=== PATIENT | male | born 1965 | race Caucasian/White ===

== ENCOUNTER 2021-06-28 09:44 | Emergency (ER) | payer BC ==
[2021-06-28] MEDS ORDERED: ONDANSETRON 4 MG/2 ML INJ IV ONE (10:55)
[2021-06-28] MEDS ORDERED: SODIUM CHLORIDE 0.9% 1000 ML 1,000 ML IV ONE (10:55)
[2021-06-28] MEDS ORDERED: FAMOTIDINE 20 MG/2 ML INJ IV ONE (11:15)
--- NOTE | 2021-06-28 11:27 | Emergency Department Report ---
- General Chief complaint: Weakness Stated complaint: GENERAL WEAKNESS Time Seen by Provider: 06/28/21 10:41 Source: EMS Mode of arrival: Ambulatory Limitations: Language Barrier - History of Present Illness Initial comments: 55-year-old German speaking male presents to the hospital complaints of worsening weakness for last 5 days with syncopal episode today. Patient has had ongoing stomach issues for several years and was unable to proceed with endoscopy last year secondary to Covid delays. For last 5 days he is only been eating a very small amount due to abdominal discomfort. Intermittent nausea and vomiting reported. Today patient had a syncopal episode and struck his head. Currently has generalized weakness. Headache, abdominal discomfort, frequent belching reported. Pain apparently only has a history elevated cholesterol but does not see a primary care doctor on regular basis. He is recently referred to the outpatient GI doctor with first visit scheduled August 02. No previous abdominal surgeries reported. Patient's can be reached at [phone] Severity scale (0 -10): 0 - Related Data Previous Rx's Medication Instructions Recorded Last Taken Type Ibuprofen [Motrin] 800 mg PO Q8HR PRN #30 tablet 12/13/19 Unknown Rx Allergies Allergy/AdvReac Type Severity Reaction Status Date / Time No Known Allergies Allergy Unverified 06/28/21 09:45 ED Review of Systems ROS: Stated complaint: GENERAL WEAKNESS Other details as noted in HPI Comment: All other systems reviewed and negative ED Past Medical Hx - Past Medical History Hx Headaches / Migraines: Yes - Social History Smoking Status: Never Smoker Substance Use Type: None - Medications Home Medications: Home Medications Medication Instructions Recorded Confirmed Last Taken Type Ibuprofen [Motrin] 800 mg PO Q8HR PRN #30 tablet 12/13/19 Unknown Rx ED Physical Exam - General Limitations: Language Barrier - Other Other exam information: General: No acute distress Head: Atraumatic, no Eyes: normal appearance ENT: Moist mucous membranes Neck: Normal appearance, no midline tenderness Chest: Clear to auscultation bilaterally CV: Regular rate and rhythm Abdomen: Soft, normal bowel sounds, nontender, nondistended, no rebound or guarding, frequent belching Back: Normal inspection.. Extremity: Normal inspection, full range of motion Neuro: Alert but with generalized weakness and requiring support for sitting up in bed. Equal handgrip. 5/5 lower extremity strength Psych: Appropriate behavior Skin: No rash ED Course Vital Signs 06/28/21 06/28/21 06/28/21 09:45 10:25 10:26 Temperature 98.4 F 98.2 F Pulse Rate 60 122 H Respiratory 20 16 Rate Blood Pressure 152/74 154/98 [Right] O2 Sat by Pulse 97 99 99 Oximetry 06/28/21 13:50 Temperature Pulse Rate 127 H Respiratory 16 Rate Blood Pressure 177/91 [Right] O2 Sat by Pulse 100 Oximetry - Reevaluation(s) Reevaluation #1: 06/28/21 12:55 Nurse informs me that patient had received IV Zofran and Pepcid. He is now more agitated and pulling out his IVs and trying to pull up the monitor leads. at the bedside also states that patient is now not making sense when he talks. Patient is currently on his way to CAT scan 06/28/21 13:[address] head noncontrast obvious subdural with significant amount of shift. I informed nursing care of the patient and asked charge nurse to move patient to a resuscitation room. Awaiting official report. I Also requested for CT techs to have radiologist read imaging stat 06/28/21 13:27 I updated about patient's condition and was placed on speaker phone with her Romanian-speaking sports development officer [id number] and explained patient's diagnosis, need for intubation and transfer 06/28/21 13:30 Patient also reexamined and right pupil larger than left and minimally reactive. gcs 13 06/28/21 14:23 BP 231/140 after intubation. Cardene drip ordered after consultation with Trauma attending. Given delay and ground transport (midnight ETA provided) air flight transport requested. Physician family member/[id number] also updated about patient's results and plan for transfer via helicopter Reevaluation #2: 06/28/21 15:03 Flight crew presented prior to collection of type and screen and coags by phlebotomy - Consultations Consultation #1: 06/28/21 13:[address] Aneesh Rivera neurosurgeon who does advise transfer 100 g of mannitol IV 06/28/21 13:39 [facility] accepted patient for transfer to [facility]. 06/28/21 14:22 Case we discussed with Dr. Cavaozs trauma attending regarding elevated blood pressure (231/140) after intubation. Recommend systolic BP of 150. Cardene ordered. RN informed - Intubation Time Out Performed: Yes Sedative: Etomidate Mg Given: 20 Paralytic: Rocuronium Mg Given: 100 Laryngoscope: fiberoptic video scope Size: 3 ET Tube Size: 7.5 Tube Secured Depth (cm): 22 Tube Secured Location: lips Tube Placement Confirmation: visualized tube passing t, equal breath sounds bilat, no breath sounds over epi, confirmation by capnometr Patient Tolerated Procedure: well Intubation Complications: none ED Medical Decision Making - Lab Data Result diagrams: 06/28/21 11:21 06/28/21 11:21 Lab Results 06/28/21 06/28/21 06/28/21 Range/Units 11:21 11: 11:21 WBC 10.5 (4.5-11.0) K/mm3 RBC 4.66 (3.65-5.03) M/mm3 Hgb 14.5 (11.8-15.2) gm/dl Hct 42.4 (35.5-45.6) % MCV 91 (84-94) fl MCH 31 (28-32) pg MCHC 34 (32-34) % RDW 12.5 L (13.2-15.2) % Plt Count 272 (140-440) K/mm3 Lymph % (Auto) 12.7 L (13.4-35.0) % [place] % (Auto) 7.6 H (0.0-7.3) % Eos % (Auto) 0.0 (0.0-4.3) % Baso % (Auto) 0.1 (0.0-1.8) % Lymph # (Auto) 1.3 (1.2-5.4) K/mm3 [place] # (Auto) 0.8 (0.0-0.8) K/mm3 Eos # (Auto) 0.0 (0.0-0.4) K/mm3 Baso # (Auto) 0.0 (0.0-0.1) K/mm3 Seg Neutrophils % 79.6 H (40.0-70.0) % Seg Neutrophils # 8.4 H (1.8-7.7) K/mm3 Sodium 131 L (137-145) mmol/L Potassium 3.6 (3.6-5.0) mmol/L Chloride 98.3 (98-107) mmol/L Carbon Dioxide 21 L (22-30) mmol/L Anion Gap 15 mmol/L BUN 20 (9-20) mg/dL Creatinine 0.5 L (0.8-1.3) mg/dL Estimated GFR > 60 ml/min BUN/Creatinine Ratio 40 % Glucose 139 H (75-100) mg/dL Calcium 8.6 (8.4-10.2) mg/dL Magnesium 2.40 H (1.7-2.3) mg/dL Total Bilirubin 0.90 (0.1-1.2) mg/dL AST 16 (5-40) units/L ALT 19 (7-56) units/L Alkaline Phosphatase 47 (35-129) units/L Troponin T < 0.010 (0.00-0.029) ng/mL Total Protein 7.8 (6.3-8.2) g/dL Albumin 4.3 (3.9-5) g/dL Albumin/Globulin Ratio 1.2 % Lipase 24 (13-60) units/L TSH 0.355 (0.270-4.200) mlU/mL Free T4 1.22 (0.76-1.46) ng/dL - EKG Data -: EKG Interpreted by Mn EKG shows normal: sinus rhythm, ST-T waves (No STEMI) Rate: bradycardia (53) - Radiology Data Radiology results: report reviewed CT HEAD WITHOUT CONTRAST INDICATION : syncope, head injury. TECHNIQUE: Axial imaging performed from the skull apex through the skull base without the use of contrast. Sagittal and coronal reformatted images. All CT scans at this location are performed using CT dose reduction for ALARA by means of automated exposure control. COMPARISON: None FINDINGS: Parenchyma: There is a moderate to large mixed density right subdural hemorrhage measuring up to 1.2 cm in thickness. There is also subdural blood along the left side of the falx measuring up to 5 mm in thickness. There is moderate to severe mass effect on the right cerebral hemisphere with diffuse sulcal effacement and right to left midline shift measuring 1.3 cm at the level of the frontal horns. Basilar cisterns are nearly obliterated particularly the suprasellar cistern. Impending herniation should be considered. There appear to be a few tiny cortical hemorrhages in the left anterior frontal lobe which is best demonstrated on images 7-9. No other areas of intraparenchymal hemorrhage. Ventricles: The right ventricle is compressed. Ventricular size appears within normal limits. There is mild dilatation of the left temporal horn of the ventricular system. Bones: No acute osseous abnormality. Sinuses: Sinuses and mastoid air cells are clear. Soft tissues: Soft tissues including the orbits appear normal. IMPRESSION: Moderate to large mixed density right subdural hemorrhage with significant mass effect as outlined above. This may represent an acute on subacute hemorrhage. Please correlate with the patient's clinical history. Small amount of acute subdural blood along the left side of the falx. Tiny cortical hemorrhages in the left anterior frontal lobe as described. CT cervical spine wo con INDICATION: head injury/syncope. TECHNIQUE: Axial CT images of the cervical spine were obtained. Sagittal and coronal reformatted images were produced. All CT scans at this location are performed using CT dose reduction for ALARA by means of automated exposure control. COMPARISON: None available. FINDINGS: ALIGNMENT: Normal alignment. VERTEBRAE: No fracture. Vertebral body heights are preserved. C1 and C2 are congruent. SPONDYLOSIS: No significant spondylosis. SOFT TISSUES: No significant soft tissue abnormality. ADDITIONAL FINDINGS: No significant additional findings. IMPRESSION: 1. No fracture of the cervical spine. CT ABDOMEN AND PELVIS WITH CONTRAST INDICATION / CLINICAL INFORMATION: abdominal pain, poor po intake OMNI 300 100 ML. TECHNIQUE: Axial CT images were obtained through the abdomen and pelvis after 100 cc of Omnipaque [address] scans at this location are performed using CT dose reduction for ALARA by means of automated exposure control. COMPARISON: None available. FINDINGS: LOWER CHEST: No significant abnormality. AORTA / ARTERIES: Mild atherosclerotic calcification without acute abnormality. IVC / VEINS: No significant abnormality. LYMPH NODES: No significant adenopathy. COLON: No significant abnormality. APPENDIX: No significant abnormality. STOMACH / SMALL BOWEL: No significant abnormality. PERITONEUM: No free fluid. No free air. No fluid collection. LIVER: No significant abnormality. GALLBLADDER: No significant abnormality. BILE DUCTS: No significant abnormality. PANCREAS: No significant abnormality. SPLEEN: No significant abnormality. ADRENALS: No significant abnormality. RIGHT KIDNEY / URETER: No significant abnormality. LEFT KIDNEY / URETER: No significant abnormality. URINARY BLADDER: No significant abnormality. REPRODUCTIVE ORGANS: No significant abnormality. SKELETAL SYSTEM: Scattered degeneration. Incidentally noted grade 1 anterolisthesis of L5 on S1 secondary to bilateral pars interarticularis defects. ADDITIONAL FINDINGS: None. IMPRESSION: 1. No CT findings to explain symptomatology. CHEST 1 VIEW 06/28/2021 11:38 AM INDICATION / CLINICAL INFORMATION: syncope, weakness. COMPARISON: 12/13/2019 FINDINGS: SUPPORT DEVICES: None. HEART / MEDIASTINUM: No significant abnormality. LUNGS / PLEURA: No significant pulmonary or pleural abnormality. No pneumothorax. ADDITIONAL FINDINGS: No significant additional findings. IMPRESSION: 1. No acute findings. Critical Care Time: Yes Critical care time in (mins) excluding proc time.: 76 Critical care attestation.: If time is entered above; I have spent that time in minutes in the direct care of this critically ill patient, excluding procedure time. Critical Care Time: 75 Minutes of critical care time excluding procedures were used in the care of the patient. I discussed treatment plan with the nursing team members. I reviewed electronic record. I spoke with family to obtain medical history. Patient required multiple interventions and reassessments. Spoke to trauma attending at [facility] who excepted patient. Airlift transport coordinated ED Disposition Clinical Impression: Subdural hematoma, Altered mental status, Midline shift of brain, Chronic abdominal pain Disposition: 02 SHORT TERM HOSPITAL Is pt being admited?: No Condition: Stable Referrals: CHETAN BATES MD [Primary Care Provider] - 3-5 Days Time of Disposition: 14:35
[2021-06-28 11:55] LABS: Basophils % (Auto) 0.1 % (0.0-1.8); Hematocrit 42.4 % (35.5-45.6); Hemoglobin 14.5 gm/dl (11.8-15.2); Lymphocytes # (Auto) 1.3 K/mm3 (1.2-5.4); Lymphocytes % (Auto) 12.7 % (13.4-35.0); Mean Corpuscular HGB Conc 34 % (32-34); Mean Corpuscular Volume 91 fl (84-94); Monocytes # (Auto) 0.8 K/mm3 (0.0-0.8); Monocytes % (Auto) 7.6 % (0.0-7.3); Platelet Count 272 K/mm3 (140-440); Red Blood Count 4.66 M/mm3 (3.65-5.03); Red Cell Distribution Width 12.5 % (13.2-15.2)
--- NOTE | 2021-06-28 12:23 | XRay Report ---
CHEST 1 VIEW 06/28/2021 11:38 AM INDICATION / CLINICAL INFORMATION: syncope, weakness. COMPARISON: 12/13/2019 FINDINGS: SUPPORT DEVICES: None. HEART / MEDIASTINUM: No significant abnormality. LUNGS / PLEURA: No significant pulmonary or pleural abnormality. No pneumothorax. ADDITIONAL FINDINGS: No significant additional findings. IMPRESSION: 1. No acute findings. Signer Name: Bentley Tao MD Signed: 06/28/2021 12:18 PM Workstation Name: [id number]
[2021-06-28 12:32] LABS: Alanine Aminotransferase 19 units/L (7-56); Albumin 4.3 g/dL (3.9-5); Blood Urea Nitrogen 20 mg/dL (9-20); Calcium 8.6 mg/dL (8.4-10.2); Hemolysis Index 14
[2021-06-28 12:35] LABS: BUN/Creatinine Ratio 40
[2021-06-28 12:49] LABS: Free T4 (Free Thyroxine) 1.22 ng/dL (0.76-1.46)
--- NOTE | 2021-06-28 13:27 | Cat Scan Report ---
CT cervical spine wo con INDICATION: head injury/syncope. TECHNIQUE: Axial CT images of the cervical spine were obtained. Sagittal and coronal reformatted images were pro duced. All CT scans at this location are performed using CT dose reduction for ALARA by means of auto mated exposure control. COMPARISON: None available. FINDINGS: ALIGNMENT: Normal alignment. VERTEBRAE: No fracture. Vertebral body heights are preserved. C1 and C2 are congruent. SPONDYLOSIS: No significant spondylosis. SOFT TISSUES: No significant soft tissue abnormality. ADDITIONAL FINDINGS: No significant additional findings. IMPRESSION: 1. No fracture of the cervical spine. Signer Name: Deacon Wahl MD Signed: 06/28/2021 1:22 PM Workstation Name: [id number]
--- NOTE | 2021-06-28 13:28 | Cat Scan Report ---
CT ABDOMEN AND PELVIS WITH CONTRAST INDICATION / CLINICAL INFORMATION: abdominal pain, poor po intake OMNI 300 100 ML. TECHNIQUE: Axial CT images were obtained through the abdomen and pelvis after 100 cc of Omnipaque [address] scans at this location are performed using CT dose reduction for ALARA by means of automated exposure control. COMPARISON: None available. FINDINGS: LOWER CHEST: No significant abnormality. AORTA / ARTERIES: Mild atherosclerotic calcification without acute abnormality. IVC / VEINS: No significant abnormality. LYMPH NODES: No significant adenopathy. COLON: No significant abnormality. APPENDIX: No significant abnormality. STOMACH / SMALL BOWEL: No significant abnormality. PERITONEUM: No free fluid. No free air. No fluid collection. LIVER: No significant abnormality. GALLBLADDER: No significant abnormality. BILE DUCTS: No significant abnormality. PANCREAS: No significant abnormality. SPLEEN: No significant abnormality. ADRENALS: No significant abnormality. RIGHT KIDNEY / URETER: No significant abnormality. LEFT KIDNEY / URETER: No significant abnormality. URINARY BLADDER: No significant abnormality. REPRODUCTIVE ORGANS: No significant abnormality. SKELETAL SYSTEM: Scattered degeneration. Incidentally noted grade 1 anterolisthesis of L5 on S1 secon jorge to bilateral pars interarticularis defects. ADDITIONAL FINDINGS: None. IMPRESSION: 1. No CT findings to explain symptomatology. Signer Name: Alex Packer DO Signed: 06/28/2021 1:24 PM Workstation Name: [id number]
--- NOTE | 2021-06-28 13:29 | Cat Scan Report ---
CT HEAD WITHOUT CONTRAST INDICATION : syncope, head injury. TECHNIQUE: Axial imaging performed from the skull apex through the skull base without the use of con trast. Sagittal and coronal reformatted images. All CT scans at this location are performed using C T dose reduction for ALARA by means of automated exposure control. COMPARISON: None FINDINGS: Parenchyma: There is a moderate to large mixed density right subdural hemorrhage measuring up to 1.2 cm in thickness. There is also subdural blood along the left side of the falx measuring up to 5 mm i n thickness. There is moderate to severe mass effect on the right cerebral hemisphere with diffuse delgado lcal effacement and right to left midline shift measuring 1.3 cm at the level of the frontal horns. B asilar cisterns are nearly obliterated particularly the suprasellar cistern. Impending herniation may uld be considered. There appear to be a few tiny cortical hemorrhages in the left anterior frontal lo be which is best demonstrated on images 7-9. No other areas of intraparenchymal hemorrhage. Ventricles: The right ventricle is compressed. Ventricular size appears within normal limits. There is mild dilatation of the left temporal horn of the ventricular system. Bones: No acute osseous abnormality. Sinuses: Sinuses and mastoid air cells are clear. Soft tissues: Soft tissues including the orbits appear normal. IMPRESSION: Moderate to large mixed density right subdural hemorrhage with significant mass effect as outlined ab ove. This may represent an acute on subacute hemorrhage. Please correlate with the patient's clinical history. Small amount of acute subdural blood along the left side of the falx. Tiny cortical hemorrhages in the left anterior frontal lobe as described. CRITICAL RESULT: Time of Discovery (SENIOR WEB SERVICES DEVELOPER/CDT): 1220 hours Time of Communication (SENIOR WEB SERVICES DEVELOPER/CDT): 1224 hours Licensed Practitioner Receiving Report: Dr. Unger Read-Back Performed: Yes. Signer Name: Ronaldo Altamirano Jr, MD Signed: 06/28/2021 1:24 PM Workstation Name: [id number]
[2021-06-28] MEDS ORDERED: ETOMIDATE 20 MG/10 ML INJ IV ONE (13:34)
[2021-06-28] MEDS ORDERED: SUCCINYLCHOLINE CHLORIDE 200 MG/10 ML INJ MDV ONE (13:34)
[2021-06-28] MEDS ORDERED: ROCURONIUM 50 MG/5 ML INJ IV ONE ×3 (13:34→13:49)
[2021-06-28] MEDS ORDERED: niCARdipine DRIP 40 MG/200 ML BAG IV ONE (14:17)
[2021-06-28] MEDS ORDERED: MANNITOL 20% 500 ML IV ONE (14:26)
[2021-06-28] MEDS ORDERED: LIP THERAPY VASELINE TP PRN (14:29)
[2021-06-28] MEDS ORDERED: MINERAL OIL/PETROLATUM, WHITE OPHTH OINT 3.5 GM OU PRN (14:29)
[2021-06-28 14:45] LABS: ABG Base Excess -1.5 mmol/L (-2.0-3.0); ABG HCO3 21.5 mmol/L (20.0-26.0); ABG Methemoglobin 0.6 % (0.0-1.5); ABG Oxygen Saturation 99.6 % (95.0-99.0); ABG PCO2 31.5 mm Hg; ABG PH 7.452 pH Units (7.350-7.450)
[2021-06-28 14:49] LABS: ABG PO2 517.1 mm Hg (80.0-90.0)
[2021-06-28 15:14] VITALS: BP 200/137
--- NOTE | 2021-06-28 15:20 | XRay Report ---
CHEST 1 VIEW 06/28/2021 2:08 PM INDICATION / CLINICAL INFORMATION: post intubation. COMPARISON: 06/28/2021 FINDINGS: SUPPORT DEVICES: Endotracheal tube terminates approximately 5.0 cm cm from the melinda. HEART / MEDIASTINUM: No significant abnormality. LUNGS / PLEURA: No significant pulmonary or pleural abnormality. No pneumothorax. ADDITIONAL FINDINGS: No significant additional findings. IMPRESSION: 1. Endotracheal tube in expected position. Signer Name: Alex Packer DO Signed: 06/28/2021 3:16 PM Workstation Name: [id number]
[2021-06-28] MEDS ORDERED: SENNOSIDES/DOCUSATE SODIUM 8.6/50 MG TAB FEEDTUBE SCH (22:00)
[2021-06-28] MEDS ORDERED: FAMOTIDINE 20 MG/2 ML INJ IV SCH (22:00)
--- NOTE | 2021-06-29 11:00 | Electrocardiograph Report ---
[facility] Test Date: 2021-06-28 Test Time: 12:04:17 Pat Name: PRISCA SORIANO Department: Room: Gender: M Customer Professional: CARROLL : 1965 Requested By: KALEIGH WHITMORE Order Number: [id number] Reading MD: Isaac Long Measurements Intervals [place] Rate: 53 P: 48 MI: 121 QRS: 50 QRSD: 82 T: 58 QT: 444 QTc: 416 Interpretive Statements Normal Sinus rhythm No previous ECG available for comparison Electronically Signed On 06-29-2021 11:00:10 EST by Isaac Long
== END 2021-06-28 15:33 | disposition short-term general hospital (02) ==
LOC: ED 09:44
DX: I62.00 Nontraumatic subdural hemorrhage, unspecified (principal); G93.89 Other specified disorders of brain; G89.29 Other chronic pain; R10.9 Unspecified abdominal pain; G43.909 Migraine, unspecified, not intractable, without status migrainosus; Z79.899 Other long term (current) drug therapy
CPT/HCPCS: 31500; 36415; 70450; 71045; 72125; 74177; 80053; 82803; 83690; 83735; 84439; 84443; 84484; 85025; 93005; 93010; 96361; 96365; 96375; 99291; 99292; J2150; J2405; J2704; J3490; J7030; Q9967; 99285; Q0162; J0330